=== PATIENT | female | born 1995 | race American Indian/Alaskan Native ===

== ENCOUNTER 2017-08-01 13:48 | Inpatient (IN) | payer MEDICAID ==
[2017-08-01] MEDS ORDERED: Oxytocin/Normal Saline 30 UNIT/500 ML BAG IV SCH (14:00)
[2017-08-01] MEDS ORDERED: Lactated Ringers 1,000 ML IV SCH (14:00)
[2017-08-01] MEDS ORDERED: Acetaminophen 325 MG Tab PO PRN (17:14)
[2017-08-01] MEDS ORDERED: Simethicone 80 MG Tab.Chew PO PRN (17:14)
[2017-08-01] MEDS ORDERED: Misoprostol 400 MCG (4 X 100 MCG TAB) RECTAL PRN (17:14)
[2017-08-01] MEDS ORDERED: Tranexamic Acid 1,000 MG in Sodium Chloride 0.9% 100 ML IV PRN (17:14)
[2017-08-01] MEDS ORDERED: Carboprost Tromethamine 250 MCG/1 ML Amp IM PRN (17:14)
[2017-08-01] MEDS ORDERED: Benzocaine/Menthol 20%-0.5% Spray 56 GM Canister TOP PRN (17:14)
[2017-08-01] MEDS ORDERED: Oxytocin 10 Units/1 ML SDV IM PRN (17:14)
[2017-08-01] MEDS ORDERED: Sodium Chloride 0.9% 10 ML Syringe FLUSH PRN (17:14)
[2017-08-01] MEDS ORDERED: Zolpidem 5 MG Tab PO PRN (17:14)
[2017-08-01] MEDS: Ibuprofen 800 MG Tab PO PRN (19:55)
--- NOTE | 2017-08-01 21:07 | HP ---
HISTORY OF PRESENT ILLNESS: This patient is a 22-year-old, 3, para 2 patient with no care at this facility recently. She did have an appointment with Dr. Mackenzie tomorrow in the clinic apparently. She has seen Eva Jones approximately 2 times at [place] earlier with this . OB ultrasound has suggested an ZBIGNIEW of 08/09 the patient states, and she would be at 38 weeks and 5 days' gestation today. She herself is not aware of any significant complications during this . She has been experiencing good movement lately. She states that she began having contractions about 8:30 this morning on Wednesday08/01/2017 at home. The contractions did get stronger, and she did come in to Labor and Delivery with just a rim of cervix or possibly completely dilated according to the nurses. The patient was taken to the treatment room where the only bed was available. heart tones were category 1 on admission. She denies leaking from the bag of ernandez or denies any heavy vaginal bleeding or gush of fluid previously. She does state that she did use marijuana as well as occasional Percocet earlier on in the . She does have unknown GBS status. Further review of her records that we do have on her reveal that Dr. Mackenzie was able to order an OB ultrasound last week and that was congruent with this history that I am giving now. Apparently, the patient did not keep her appointment with Dr. Mackenzie on 07/30, but was rescheduled to see Dr. Mackenzie tomorrow morning on Wednesday in the office. The patient is not immune to rubella. She has had very late care as mentioned above. Tdap vaccination was never given. PAST MEDICAL HISTORY: She denies any knowledge of heart, lung, liver, or kidney disease. ALLERGIES: None known PAST SURGICAL HISTORY: None. MEDICATIONS: At present, iron supplements orally. FAMILY HISTORY: One grandparent has had diabetes before and another grandparent had lung cancer. SOCIAL HISTORY: She does live in [place] with her parents. She did smoke cigarettes previously, but states that she did stop 3 months ago. She denies any alcohol usage during the . She has worked at [employer]. PHYSICAL EXAMINATION: Vital Signs: Please see the EHR as it pertains to her admission vital signs. HEENT: The sclerae are nonicteric. Lungs: Clear to A. Heart: Regular rhythm without murmur. Abdomen: Gravid with heart tones present and category 1. When I have examined the patient, she was completely dilated with the bag of ernandez intact. The head was at +1 to +2 station, and amniotomy is done giving clear fluid. Vertex is the presenting part of course. Extremities: Negative. IMPRESSION: We do anticipate recent or spontaneous vaginal delivery in the very near future. We have discussed her with family doctor, Dr. Padilla, who will be taking care of the baby. She does have unknown GBS status. Please see the EHR as it pertains to the remainder of all of her other laboratory data. [facility] /[id number]
--- NOTE | 2017-08-02 02:28 | DEL ---
DATE: 08/01/2017 HISTORY: The patient does come to Labor and Delivery with either a rim to possibly completely dilated with bulging bag of ernandez. Please see our dictated H and P. She has proceeded on very rapidly to have a normal spontaneous vaginal delivery. The baby was delivered from the occiput anterior position. scores were 8 and 9, and the baby's weight is pending. A sample of cord blood was obtained. The vaginal delivery occurred at 1416 hours on 08/01/2017. The placenta was delivered spontaneous and intact. A sample of cord blood was obtained as mentioned above. No episiotomy was done and no lacerations were sustained. Estimated blood loss was approximately 250 mL. The patient has tolerated the procedure well and remains very stable in the area, which is actually the treatment room today at the moment. Baby also remains very stable. [facility] /[id number]
[2017-08-02] MEDS: Prenatal Multivitamin with Calcium/Folic Acid/Iron Tab PO SCH (09:29)
[2017-08-02] MEDS: Docusate Sodium 100 MG Cap PO PRN ×2 (09:29→22:16)
[2017-08-02] MEDS: Ibuprofen 800 MG Tab PO PRN ×2 (09:31→17:56)
--- NOTE | 2017-08-02 17:53 | PN ---
DATE: 08/02/2017 SUBJECTIVE: The patient denies any problems. She is feeling well today. Her lochia flow is normal. OBJECTIVE: Her extremities are negative including negative Homans sign. Her vital signs are within normal limits. ASSESSMENT: Stable course. The patient is bottle feeding. She does ask about bilateral tubal ligation in the future. She has not yet signed any of the necessary paperwork here or at [place]. We will permit discharge tomorrow and further advise her regarding getting the paperwork done for her BTL and then we will also help set up a consultation with Dr. Cates in the future either here in [place] or in [place], as he will also have to do the procedure at [facility]. Perhaps we would give the patient a Depo-Provera injection IM in about 2 weeks to help facilitate her so that she does not get and give us time for her to proceed with bilateral tubal ligation. She will do gradual progressive ambulation while in the hospital as well as when she gets home. We did discuss the importance of healthy well-balanced nutritional measures and adequate hydration, etc. All of her questions have been answered as best as possible. We will see her tomorrow on Wednesday and discharge her tomorrow on 08/03/2017. [facility] /[id number]
[2017-08-03] MEDS: Ibuprofen 800 MG Tab PO PRN (02:23)
[2017-08-03] MEDS: Prenatal Multivitamin with Calcium/Folic Acid/Iron Tab PO SCH (08:50)
[2017-08-03] MEDS: Docusate Sodium 100 MG Cap PO PRN (08:50)
[2017-08-03] MEDS ORDERED: Measles, Mumps & Rubella Vaccine 0.5 ML SDV SUBCUT ONE (08:51)
[2017-08-03] MEDS ORDERED: Diphtheria,Pertussis(Acell),Tetanus Vaccine 0.5 ML SDV IM ONE (08:51)
[2017-08-03 09:32] VITALS: BP 107/57
--- NOTE | 2017-08-04 01:13 | DISCH ---
HISTORY OF PRESENT ILLNESS: This patient is a 22-year-old multigravida with sparse care. I believe, she has seen Eva Jones, approximately 2 times in the clinic at [place]. The patient did have an appointment to see Dr. Mackenzie at our facility in [place] this past 07/30/2017, but the patient did not keep that appointment. She has therefore not seen any of our doctors recently here. A review of the records that I do have on her, show that she has unknown GBS status. On admission, her blood type is O positive and antibody screen was negative. She was thought to possibly be at 38 weeks 5 days gestation. She was immune to rubella. RPR was nonreactive. HIV testing was negative. Her GC and chlamydia testing were negative earlier. She is negative for hepatitis B surface antigen. As mentioned above, antibody screen was negative. One-hour GTT was 130 or within normal limits. The patient felt that her contractions started to get quite strong on Wednesday morning, August 01. They got progressively stronger and she made a quick trip to Labor and Delivery area. When she did arrive at our Labor and delivery area, she only had a rim of cervix with a bulging bag of ernandez. The patient was taken to the treatment room and triage room because no labor beds were available. I was able to garg over and see the patient before delivery. She denied any knowledge of previous heart, lung, liver, or kidney disease. Please see my dictated H and P that is already in the EHR. Also, please see my dictated delivery note. The patient did proceed on to have a spontaneous vaginal delivery, and at the moment, I do not have the baby's weight in front of me. Her baby did have good scores of 8 and 9. Please see dictated delivery note as mentioned above. The patient has done well in the . Her extremities are negative and her lochia flow is within normal limits. The patient is seen again today on discharge rounds on August 03. Her extremities are still negative and lochia flow is normal. Fundus is firm. Her discharge hemoglobin is 10.7. Her extremities are negative as mentioned above. The patient did mention that she is quite sure that she wants a tubal ligation. I did thoroughly explain to her the importance of starting the paperwork at this time, and I did urge her to go to her clinic at [place] and start the paperwork permit process and if she chooses to change her mind in the future that is no problem whatsoever. Also, I did urge her to see me in the clinic in approximately 2 weeks and we will administer Depo-Provera if she wishes for interval contraception. The patient is bottle feeding. One of our family doctors is following the baby. Her discharge hemoglobin is 10.7, and her condition on discharge is good. As mentioned above, baby will be seen in approximately 1 week in our clinic and she will see me in approximately 2 weeks for followup appointment. OTHER INSTRUCTIONS: She will call us at once if any questions or problems with excess pain, excess bleeding, lower extremity or breast problems etc. She also would call us if any fever. All of her questions have been answered as best as possible. DISCHARGE MEDICATIONS: She will take either Tylenol or Motrin p.r.n. and Colace p.r.n. she was also urged to continue her vitamin and have healthy well- balanced nutritional measures and stay adequately hydrated. FINAL DIAGNOSES: at approximately 38 weeks 5 days gestation with spontaneous vaginal delivery and no episiotomy and no lacerations. [facility] /[id number]
== END 2017-08-03 11:20 | disposition home or self-care (01) | DRG 775 ==
LOC: DL.OBCHECK 13:48 → DL.MS 14:16 → DL.OB 14:25 → OBSVTOIN 14:25 → UNDOADMOB 14:25 → DL.MS 14:25 → INTOOBSV 14:25
PROVIDERS: ADMIT Obstetrics & Gynecology; ATTEND Obstetrics & Gynecology
PROC: 10E0XZZ Delivery of Products of Conception, External Approach (ICD-10-PCS; principal; 2017-08-01)
PROC: 6A550ZT Pheresis of Cord Blood Stem Cells, Single (ICD-10-PCS; 2017-08-01)
PROC: 3E0234Z Introduction of Serum, Toxoid and Vaccine into Muscle, Percutaneous Approach (ICD-10-PCS; 2017-08-01)
DX: O80 Encounter for full-term uncomplicated delivery (principal); Z37.0 Single live birth; Z3A.38 38 weeks gestation of pregnancy; Z23 Encounter for immunization; Z28.3 Underimmunization status
CPT/HCPCS: 36415; 59409; 85027; 90471; 90707; 90715; A9270-GY; J2590; J7120

== ENCOUNTER → 2019-06-22 02:36 | Emergency (ER) | payer MEDICAID | END | disposition left against medical advice (07) | LOC: DL.ED 02:36 | DX: Z53.21 Procedure and treatment not carried out due to patient leaving prior to being seen by health care provider (principal) ==

== ENCOUNTER 2020-01-20 16:50 | Emergency (ER) | payer MEDICAID, OTHER, SELFPAY ==
[2020-01-20 17:13] VITALS: BP 115/91; PULSE 93
[2020-01-20] MEDS ORDERED: Lidocaine 1% 30 ML SDV INJECT ONE (18:55)
--- NOTE | 2020-01-20 19:04 | EDM.PDOC ---
ED HPI GENERAL MEDICAL PROBLEM - General Chief Complaint: Laceration Stated Complaint: LACERATION ON RIGHT HAND, BLEEDING Time Seen by Provider: 01/20/20 18:59 Source of Information: Reports: Patient History Limitations: Reports: No Limitations - History of Present Illness INITIAL COMMENTS - FREE TEXT/NARRATIVE: cut while doing dishes Right Finger-Index Pain Score (Numeric/FACES): 9 - Related Data Allergies Allergy/AdvReac Type Severity Reaction Status Date / Time No Known Allergies Allergy Verified 01/20/20 17:13 Home Meds: Home Meds Ferrous Sulfate 325 mg PO BIDMEALS 12/09/18 [History] Past Medical History - Past Health History Medical/Surgical History: Denies Medical/Surgical History Other HEENT History: bit by dog, with subsequent laser surgery to one eye at age 2 Cardiovascular History: Reports: None Respiratory History: Reports: None Gastrointestinal History: Reports: None Other Gastrointestinal History: heartburn Genitourinary History: Reports: UTI, Recurrent Other Genitourinary History: frequent UTIs when 12-13yrs HEARING [employer]IST History: Reports: None, Musculoskeletal History: Reports: None, Other (See Below) Other Musculoskeletal History: Rt foot fracture Neurological History: Reports: None Psychiatric History: Reports: None Other Psychiatric History: occ Endocrine/Metabolic History: Reports: None Other Endocrine/Metabolic History: IGT per record. Hematologic History: Reports: None Immunologic History: Reports: None Oncologic (Cancer) History: Reports: None Dermatologic History: Reports: None - Infectious Disease History Infectious Disease History: Reports: Chicken Pox Other Infectious Disease History: +GC, +Chlamydia - Past Surgical History Head Surgeries/Procedures: Reports: None HEENT Surgical History: Reports: Laser Surgery Cardiovascular Surgical History: Reports: None Respiratory Surgical History: Reports: None GI Surgical History: Reports: None Female Surgical History: Reports: None Endocrine Surgical History: Reports: None Neurological Surgical History: Reports: None Oncologic Surgical History: Reports: None Dermatological Surgical History: Reports: None Social & Family History - Family History Family Medical History: Noncontributory HEENT: Reports: None Cardiac: Reports: None Respiratory: Reports: None GI: Reports: None : Reports: None OBGYN: Reports: Other (See Below) Musculoskeletal: Reports: None Neurological: Reports: None Psychiatric: Reports: None Endocrine/Metabolic: Reports: Diabetes, Gestational, Diabetes, Type I, Diabetes, type II Hematologic: Reports: None Immunologic: Reports: None Dermatologic: Reports: None Oncologic: Reports: Breast, Lung - Tobacco Use Smoking Status *Q: Current Every Day Smoker Years of Tobacco use: 4 Packs/Tins Daily: 0.5 Second Hand Smoke Exposure: No - Caffeine Use Caffeine Use: Reports: Coffee, Soda - Recreational Drug Use Recreational Drug Use: No - Sexual History Sexual History: Reports: Sexually Active - Living Situation & Occupation Living situation: Reports: Single Occupation: Unemployed ED ROS GENERAL - Review of Systems Review Of Systems: Comprehensive ROS is negative, except as noted in HPI. ED EXAM, SKIN/RASH Exam: See Below Exam Limited By: No Limitations General Appearance: Alert, WD/WN, Mild Distress, Other (crying) Ears: Hearing Grossly Normal Throat/Mouth: Normal Voice, No Airway Compromise Head: Atraumatic Neck: Non-Tender, Full Range of Motion Respiratory/Chest: No Respiratory Distress Cardiovascular: Regular Rate, Rhythm GI/Abdominal: Soft, Non-Tender (Female) Exam: Deferred Rectal (Female) Exam: Deferred Extremities: Other (right 2nd MPJ 1" lac, NV wnl, c/o too pain to move finger) Neurological: Alert, Oriented, Normal Cognition, Normal Gait, No Motor/Sensory Deficits Psychiatric: Tearful Skin: Warm, Dry, Normal Color Location, Skin: Upper Extremity, Right Lymphatic: No Adenopathy ED SKIN PROCEDURES - Laceration/Wound Repair Right Digit - 2nd (Index) Appearance: Subcutaneous, Irregular, Clean Distal NVT: Neuro & Vascular Intact, Other (c/o too much pain to move finger) Local Anesthesia - Lidocaine (Xylocaine): 1% Plain Local Anesthetic Volume: 5cc Skin Prep: Chlorhexidine (Hibiciens) Saline Irrigation (cc's): 20 Exploration/Debridement/Repair: Wound Explored, In a Bloodless Field, No Foreign Material Found Closed with: Sutures Lac/Wound length In cm: 3 (right 2nd MPJ) Suture Size: 3-0 Suture Type: Nylon, Interrupted Sterile Dressing Applied: Provider Tetanus Status Addressed: Yes Complications: No Right Digit - 1st (Thumb) Appearance: Superficial, Linear, Clean Distal NVT: Neuro & Vascular Intact, No Tendon Injury Skin Prep: Chlorhexidine (Hibiciens) Saline Irrigation (cc's): 20 Exploration/Debridement/Repair: Wound Explored, In a Bloodless Field, No Foreign Material Found Closed with: Dermabond Lac/Wound length In cm: 0.5 (RIGHT THUMB) Sterile Dressing Applied: Provider Tetanus Status Addressed: Yes Complications: No Course - Vital Signs Last Recorded V/S: Last Vital Signs Temp 36.6 C 01/20/20 17:04 Pulse 93 01/20/20 17:04 Resp 16 01/20/20 17:04 BP 115/91 H 01/20/20 17:04 Pulse Ox 100 01/20/20 17:04 - Orders/Labs/Meds Meds: Medications Discontinued Medications Generic Name Dose Route Start Last Admin Trade Name Michelle PRN Reason Stop Dose Admin Lidocaine HCl 30 ml 01/20/20 18:55 01/20/20 18:58 Xylocaine-Mpf 1% INJECT 01/20/20 18:56 30 ml ONETIME ONE Administration Departure - Departure Time of Disposition: 19:23 Disposition: Home, Self-Care 01 Condition: Good Clinical Impression: Finger laceration Qualifiers: Encounter type: initial encounter Finger: index finger Damage to nail status: without damage Foreign body presence: without foreign body Laterality: right Qualified Code(s): S61.210A - Laceration without foreign body of right index finger without damage to nail, initial encounter - Discharge Information Instructions: Sutured Wound Care, [id number] Forms: ED Department Discharge Additional Instructions: 1) keep wound clean dry covered 2) wound check if looks infected 3) suture removal 10 days 4) see clinic Wednesday for ORTHOPEDIC REFERRAL IF STILL UNABLE TO MOVE FINGER Sepsis Event Note (ED) - Evaluation Sepsis Screening Result: No Definite Risk - Focused Exam Vital Signs: Vital Signs Temp Pulse Resp BP Pulse Ox 01/20/20 17:04 36.6 C 93 16 115/91 H 100
== END 2020-01-20 19:33 | disposition home or self-care (01) ==
LOC: DL.ED 16:50
DX: S61.210A Laceration without foreign body of right index finger without damage to nail, initial encounter (principal); S61.011A Laceration without foreign body of right thumb without damage to nail, initial encounter; F17.210 Nicotine dependence, cigarettes, uncomplicated; W26.8XXA Contact with other sharp object(s), not elsewhere classified, initial encounter; Y93.G1 Activity, food preparation and clean up
CPT/HCPCS: 12002; 99282; J2001

== ENCOUNTER 2020-09-02 08:55 | Inpatient (IN) | payer MEDICAID ==
[2020-09-02] MEDS ORDERED: Lactated Ringers 1,000 ML IV ONE (09:28)
[2020-09-02] MEDS ORDERED: Oxytocin 10 Units/1 ML SDV IM PRN (09:28)
[2020-09-02] MEDS ORDERED: Carboprost Tromethamine 250 MCG/1 ML Amp IM PRN ×2 (09:28)
[2020-09-02] MEDS ORDERED: Tranexamic Acid 1,000 MG in Sodium Chloride 0.9% 100 ML IV PRN ×4 (09:28)
[2020-09-02] MEDS ORDERED: Methylergonovine 0.2 MG/1 ML Amp IM PRN (09:28)
[2020-09-02] MEDS ORDERED: Misoprostol 400 MCG (4 X 100 MCG TAB) RECTAL PRN ×2 (09:28)
[2020-09-02] MEDS ORDERED: Acetaminophen 325 MG Tab PO PRN (09:28)
[2020-09-02] MEDS ORDERED: Lidocaine 1% 30 ML SDV INJECT PRN (09:28)
[2020-09-02] MEDS ORDERED: Ondansetron 4 MG/2 ML SDV IVPUSH PRN (09:28)
[2020-09-02] MEDS ORDERED: Sodium Chloride 0.9% 10 ML Syringe FLUSH PRN (09:28)
[2020-09-02] MEDS ORDERED: Benzocaine/Menthol 20%-0.5% Spray 56 GM Canister TOP PRN (09:28)
[2020-09-02] MEDS ORDERED: Oxytocin/Normal Saline 30 UNIT/500 ML BAG IV SCH (09:30)
[2020-09-02] MEDS ORDERED: Lactated Ringers 1,000 ML IV SCH (09:30)
[2020-09-02] MEDS ORDERED: Labetalol 20 MG/4 ML Syringe IVPUSH PRN ×2 (09:36→09:44)
[2020-09-02] MEDS ORDERED: Simethicone 80 MG Tab.Chew PO PRN (10:00)
[2020-09-02] MEDS: Ibuprofen 800 MG Tab PO PRN ×2 (10:05→21:38)
[2020-09-02] MEDS ORDERED: Magnesium Sulfate/Water 4 GM/100 ML BAG ONE (10:36)
[2020-09-02] MEDS ORDERED: Magnesium Sulfate/Water 4 GM/100 ML BAG IV ONE (10:37)
[2020-09-02] MEDS ORDERED: hydrALAZINE 20 MG/ML SDV IVPUSH PRN (10:42)
[2020-09-02] MEDS ORDERED: MAGNESIUM SULFATE IV SCH (10:45)
[2020-09-02] MEDS ORDERED: D5W IV SCH (10:45)
[2020-09-02] MEDS: Magnesium Sulfate/Water 20 GM/500 ML BAG IV SCH ×2 (11:28→21:37)
--- NOTE | 2020-09-02 13:48 | US ---
EXAMINATION: OB Ltd 1 or More Fetus SEX: Female AGE: 25 years CLINICAL HISTORY: 25-year-old high risk (no care) female "in labor" (baby delivered during exam). Interpretation: Enlarged uterus with a single intrauterine gestation, longitudinal lie and cephalic presentation. Fundal placenta.
--- NOTE | 2020-09-02 18:24 | HP ---
ADMISSION DATE: 09/02/2020 ADMITTING DIAGNOSES: 1. Intrauterine , suspect near term. 2. No care. 3. Labor with rapid delivery of viable female . 4. Group B streptococcus unknown. 5. Meconium-stained fluid. 6. Preeclampsia with severe features. 7. G5, now P5-0-0-5. 8. Drug toxicology positive for THC and methamphetamines. 9. Blood type O positive with negative antibody screen. 10.Anemia of , hemoglobin upon admission 11.0. HISTORY OF PRESENT ILLNESS: Kimmy Ross is a 25-year-old, G5, now P5-0-0-5 at unknown gestation, who presented to [facility] in active labor. She felt the need to push upon arrival and reports no care. She believes her LMP was in 09/2019 or 10/2019. She never took a test. She denied any symptoms of . She reports that she knew she was , but she did not have time to go in for visits. She also reports that she lacks transportation. After presenting to the hospital, within 12 minutes, she had delivered a viable female . Third stage of labor occurred without complication, and placenta was delivered, but had diffuse calcifications present. Bleeding was minimal. No repairs were made to the perineum or vaginal perla. prior to delivery statu ultrasound revealed vertex presentation with fundal placenta and unable to do EFW/dates as rapid delivery. OBSTETRIC HISTORY: G5, P5-0-0-5 1. 02/16/2015: Female, vaginal, 2845 g. 2. 03/30/2016: Female, vaginal, 3260 g. 3. 08/01/2017: Male, vaginal, 3630 g. 4. 12/09/2018: Male, vaginal, 3420 g. 5. Current , delivered today on 09/02/2020, female, vaginal, 2445 g. ALL VAGINAL DELIVERIES GYNECOLOGICAL HISTORY: Denies history of genital herpes. LABS: None. PAST MEDICAL HISTORY: Positive for gestational hypertension. Denies history of seizures. PAST SURGICAL HISTORY: Had eye laser surgery at [age] years of age. ALLERGIES: No known allergies. SOCIAL HISTORY: Lives in [place]. She reports lack of transportation. She used tobacco approximately three cigarettes per day throughout this . She denies any alcohol use throughout this . She promotes marijuana use and Percocet use during this . She denies any history of IV drug use. She denies history of methamphetamine use. She last used Percocet from a non-pharmacy origin which she reports was laced with something. She took it for her back pain but felt sick, so she discontinued use. She believes it was laced with methamphetamine. FAMILY HISTORY: Dad has diabetes and hypertension. Denies any congenital defects, bleeding, or clotting disorders in her family history. REVIEW OF SYSTEMS: Positive for vision changes. Denies any headaches, nausea, vomiting, fevers, chills, chest pain, shortness of breath, numbness, paresthesias, or weakness. MEDICATIONS DURING : Reports taking vitamins throughout the entire . Also, reports Percocet use which she believes was laced with methamphetamines. Denies any other medications during this . PHYSICAL EXAMINATION: Admission Vital Signs: 98.0 F, BP 148/89, P 79, breathing on room air. General appearance: In acute distress Lungs: Bilateral wheezes present. Symmetric air entry. Abdomen: Post gravid uterus. Abdomen appropriately tender. Fundus firm, 1 fingerbreadth below umbilicus at midline. Extremities: No concerning edema. Skin: Normal coloration and turgor. Neurologic: Cranial nerves 2 through 12 normal. Bilateral ankle clonus present. Bilateral visual sena intact. Night Auditor strength equal bilaterally. FHT: Before delivery, approximately 10 minutes of heart tones were recorded. Strip was category 2 with baseline of 140 and moderate variability. Variable decelerations present, accelerations present. Tocometer: Oniel continuous/every 1 minute. Pelvic: Cervix dilated to complete. Upon cervical exam, bag of water broken with mec-stained fluid present. station +2. LABORATORY DATA: Hematology: WBC 11.4, RBC 4.14, HGB 11.0, HCT 34.7, platelet count 182. Chemistry: BUN 12, creatinine 1.02, uric acid 5.3, magnesium 1.6, AST 22, ALT 18, LDH 244. Urine: Yellow; specific gravity 1.025; urine protein high at 100; negative for glucose, ketones, nitrites, bilirubin, leukocyte esterase. Protein creatinine ratio at 1037.5. Urine toxicology: Positive for methamphetamines and marijuana. Negative for opiates, oxycodone, methadone, barbiturates, TCAs, phencyclidine, MDMA, benzodiazepines, cocaine. Serology: HIV-1 antibody nonreactive, HIV-2 antibody nonreactive, HIV p24 antigen nonreactive, SARS-CoV-2 RNA negative. Blood type O positive with negative antibody screen. IMAGING: Obstetric ultrasound confirmed vertex presentation with placenta at fundus. HOSPITAL COURSE SINCE ADMISSION: The patient's blood pressures became elevated with systolic blood pressures greater than 160. She was given 20 mg IV push of labetalol. After 15 minutes, her blood pressures had not improved, so 40 mg IV push labetalol was given. After a subsequent 15 minutes, her blood pressure remained elevated with a systolic blood pressures above 160, and her pulse rate was low at 59. It was determined at this time to give 10 mg IV push of hydralazine. We also started magnesium per protocol which included a 4 g push followed by a 2 g/hour continuous dosage for 24 hours . The patient has remained nonambulatory. A catheter was placed. There was not time to begin penicillin prophylaxis for unknown GBS status, but culture was sent for verification. ASSESSMENT AND PLAN: Kimmy Ross is a 25-year-old female, G5, now P5-0-0-5, at unknown gestation who is admitted for delivery and now care and monitoring/management of preeclampsia with severe features. We will order magnesium blood levels every 6 hours. We will continue to monitor serially and closely including reflex checks every hour, blood pressure checks every 15 minutes, and additional signs and symptoms of preeclampsia. If blood pressures are above goal (SBP greater than 160 or DBP greater than 110), may consider giving 40 mg IV push of labetalol if heart rate is within normal limits or may use 10 mg IV push of hydralazine. We will continue the magnesium drip for up to 24 hours . We will continue to monitor for signs and symptoms of drug withdrawal. We will order CBC for the a.m. tomorrow. May encourage a normal diet. We will follow up on the following labs: RPR (syphilis serology), hepatitis B surface antigen screen, hepatitis C virus antibodies, chlamydia and gonorrhea, culture of GBS, rubella antibody, tramadol screen, wet prep, and magnesium q.6 h. Continue with seizure precautions. The patient verbalizes understanding and is in agreement with plan. We will continue to follow closely and monitor clinically as appropriate. ADRIAN HillII Seen with medical student. Patient was personally seen and examined with the medical student practitioner student, Fozia Palomo. I reviewed the noted scribed on my behalf and necessary changes have been made to reflect my opinion on the history, exam, assessment, and plan [facility] /[id number]
[2020-09-02] MEDS ORDERED: Zolpidem 5 MG Tab PO PRN (21:00)
[2020-09-03] MEDS: Prenatal Multivitamin with Calcium/Folic Acid/Iron Tab PO SCH (08:41)
[2020-09-03] MEDS: Docusate Sodium 100 MG Cap PO PRN ×2 (08:41→20:24)
[2020-09-03] MEDS: Ibuprofen 800 MG Tab PO PRN ×2 (08:41→20:24)
[2020-09-03 11:47] LABS: C.TRACHOMATIS BY TMA Negative (Negative); N.GONORRHOEAE BY TMA Negative (Negative)
--- NOTE | 2020-09-03 12:21 | DEL ---
DATE: 09/02/2020 PREOPERATIVE DIAGNOSES: 1. Intrauterine with no care, suspect near-term. 2. No care. 3. Labor. 4. Rapid delivery. 5. Group B Streptococcus unknown. 6. -0-0-4. POSTOPERATIVE DIAGNOSES: 1. Intrauterine with no care, suspect near-term, delivered. 2. No care. 3. Labor. 4. Rapid delivery. 5. Group B Streptococcus unknown. 6. Now -0-0-5. 7. Meconium-stained fluid. PROCEDURE PERFORMED: Spontaneous vaginal delivery. ANESTHESIA/ANALGESIA: None. ESTIMATED BLOOD LOSS: 200 mL. FINDINGS: Female. score and weight pending. SUMMARY OF EVENTS: The patient is a 25-year-old, -0-0-4 by her history, who presented in active labor with no care. Noted contractions started the night before admission, increasing frequency and intensity to the point that she almost felt like she had to push and presented to the hospital. She described some mucousy red discharge over the last day. No leaking of fluid. She notes the urge to push upon admission. Stat ultrasound as well as no care labs were called for, an IV was started. Initial monitoring did reveal heart tones in the 130s. Initial blood pressure was 140s over 80s. Stat ultrasound did reveal vertex presentation with fundal placenta. Subsequently vaginal exam thereafter revealed her to be complete. The patient described the urge to push and then subsequently pushed with the next contraction. vertex was delivered with bag of water ruptured with presentation of the head with meconium-stained fluid. Rest of the was delivered without difficulty. Mouth and nares were suctioned. Cord was doubly clamped and cut. was brought over to team for resuscitation. Then, approximately 10 mL of cord blood was obtained for labs. Placenta was then delivered with gentle cord traction and fundal massage within 5 to 10 minutes. Perineum, vagina, and perirectal areas were then examined without any tears or lacerations other than small bilateral periurethral abrasions. Prior to delivery of placenta, cath urinalysis was done for labs for urine drug screen as well as for PIH labs due to elevated blood pressure. Mother and are currently stable at the time of dictation. [facility] /[id number]
--- NOTE | 2020-09-03 12:32 | PN ---
DATE: 09/03/2020 SUBJECTIVE: The patient is 1 day s/p a normal spontaneous vaginal delivery at unknown gestation. She reports feeling tired and fatigued. She reports that her vision changes have completely resolved. She did not sleep well overnight. She is demanding her medications be stopped and wants breakfast this morning. I assured patient that breakfast would be served this morning. She also reports having headache overnight, which has resolved. She denies any chest pain, shortness of breath, numbness, weakness, paresthesias, fevers, chills, nausea, or vomiting. She still has a Velazquez catheter and is nonambulatory. OBJECTIVE: Vital Signs: T afebrile, P 66, BP 115/68, and respirating on room air. General Appearance: In no acute distress. Heart: Regular rate and rhythm. No murmur heard. Lungs: Bilateral wheezes present. Symmetric air entry. Abdomen: Post gravid uterus. Abdomen appropriately tender. Fundus firm at level of umbilicus, left to the midline. Extremities: No concerning edema. Skin: Normal coloration and turgor. Neurologic: Cranial nerves 2 through 12 normal. No ankle clonus bilaterally. Bilateral visual sena intact. Boatbuilder Apprentice Wood strength equal bilaterally. LABORATORY DATA: WBC 11.0, RBC 4.05, HGB 10.7, HCT 33.9, and platelet count 177. Magnesium 6.0. Rubella immune status, immune. Rubella IgG antibody positive. ASSESSMENT: 1. 1 day status post normal spontaneous vaginal delivery suspect near term. 2. No care. 3. Labor with rapid delivery of viable female . 4. Group B Streptococcus status unknown. 5. Meconium-stained fluid. 6. Preeclampsia with severe features. 7. G5, now P5-0-0-5. 8. Drug toxicology positive for THC and methamphetamines. 9. Blood type O-positive with negative antibody screen. 10.Anemia of . Hemoglobin upon admission 11.0, hemoglobin today 10.7. 11.Rubella immune. PLAN: We may discontinue magnesium after 24 hours . In the meantime, we will continue to order magnesium blood levels every 6 hours. We will continue to monitor serially and closely including reflex checks every hour, blood pressure checks every hour, and observe for additional signs and symptoms of preeclampsia. Goal to maintain blood pressures, SBP less than 160 or DBP less than 110. If not meeting blood pressure goals, may consider 20 mg IV push of labetalol. We will continue to monitor for signs and symptoms of drug withdrawal. May encourage a normal diet. We will continue to follow up on the following labs: RPR/syphilis serology, hepatitis B surface antigen screen, hepatitis C virus antibodies, chlamydia and gonorrhea, culture of GBS, tramadol screen, wet prep, and magnesium levels every 6 hours. Continue seizure precautions. The patient verbalizes understanding and is in agreement with plan. We will continue to follow closely and monitor clinically as appropriate. director of women's services was contacted and they will undergo their assessment. We will discharge considering their recommendations. SAVANA Hill Seen with medical student. Patient was personally seen and examined with the medical student practitioner student, Fozia Palomo. I reviewed the noted scribed on my behalf and necessary changes have been made to reflect my opinion on the history, exam, assessment, and plan-[facility] [place] /[id number] RADHA
[2020-09-03] MEDS: Acetaminophen 325 MG Tab PO PRN (20:25)
[2020-09-04] MEDS: Docusate Sodium 100 MG Cap PO PRN (08:42)
[2020-09-04] MEDS: Prenatal Multivitamin with Calcium/Folic Acid/Iron Tab PO SCH (08:42)
[2020-09-04] MEDS: Ibuprofen 800 MG Tab PO PRN (08:42)
[2020-09-04] MEDS: Acetaminophen 325 MG Tab PO PRN (12:07)
[2020-09-04 12:12] VITALS: BP 131/68; PULSE 74
--- NOTE | 2020-09-04 12:23 | PN ---
DATE: 09/04/2020 SUBJECTIVE: The patient is 2 days S/P a normal spontaneous vaginal delivery at unknown gestation. She still reports feeling tired and fatigued. She reports that she has mainly slept during her hospital stay. She denies any vision changes. She denies any headaches, chest pain, shortness of breath, fevers, chills, nausea, or vomiting. Velazquez catheter has been removed. She has no concerns. OBJECTIVE: Vital signs: T 98.5 F, P 75, BP 142/69, RR 19. General appearance: Sleeping, in no acute distress. Heart: Regular rate and rhythm. No murmur heard. Lungs: Bilateral wheezes present. Symmetric air entry. Abdomen: Post gravid uterus. Fundus firm, 2 fingerbreadths below the level of umbilicus, at midline. Extremities: No concerning edema. Skin: Normal coloration and turgor. Neurologic: Cranial nerves grossly intact. Nuclear Supervising Operator strength equal bilaterally. LABORATORY DATA: Preliminary GBS results negative, chlamydia negative, gonorrhea negative, hepatitis B surface antigen negative. ASSESSMENT: 1. 2 days status post normal spontaneous vaginal delivery, suspect near term. 2. No care. 3. Labor throughout the delivery of viable female . 4. Group B Strep status preliminary negative. 5. Meconium-stained fluid. 6. Preeclampsia with severe features, treated with magnesium 24 hours . 7. 5, now para 5-0-0-5. 8. Drug toxicology positive for THC and methamphetamines. 9. Blood type O positive with negative antibody screen. 10.Anemia at . Hemoglobin upon admission 11.0, last hemoglobin was 10.7. 11.Rubella immune. PLAN: We will continue to monitor serum closely to observe for any additional signs and symptoms of preeclampsia. Goal to maintain blood pressures SBP less than 160 or DBP less than 110. We will continue to monitor for signs and symptoms of drug withdrawal. May encourage a normal diet. Encourage increasing activity as tolerated. We will continue to follow up on the following labs: RPR/syphilis serology, hepatitis C virus antibodies, tramadol screen, wet prep. Learning Analyst was contacted and they will undergo their assessment. We will consider their recommendations when making discharge planning. The patient verbalizes understanding and is in agreement with plan. ADRIAN HillII Seen with medical student. Patient was personally seen and examined with the medical student practitioner student, Fozia Palomo. I reviewed the noted scribed on my behalf and necessary changes have been made to reflect my opinion on the history, exam, assessment, and plan-DCW. as of 1706 patient discharged after social and human services assistant made plan for baby-see discharge summary as well. [facility] /[id number] MTDD
--- NOTE | 2020-09-05 06:50 | DISCH ---
ADMITTING DIAGNOSES: 1. Intrauterine suspect near term. 2. No care. 3. Labor. 4. Rapid delivery. 5. GBS unknown. 6. Meconium-stained fluid. 7. G4, P4-0-0-4. 8. Positive THC and methamphetamine on urine drug screen. 9. Preeclampsia severe features. DISCHARGE DIAGNOSES: 1. Intrauterine suspect near term - delivered suspect nearly 39 to 40 weeks based on Payan scoring. 2. No care. 3. Labor. 4. Rapid delivery. 5. GBS unknown. 6. Meconium-stained fluid. 7. -0-0-4. 8. Positive THC and methamphetamine on urine drug screen. 9. Preeclampsia severe features - magnesium sulfate given for 24 hours . PROCEDURE PERFORMED: Spontaneous vaginal delivery on 09/02/2020. Procedure performed by Reginald Elaine MD HISTORY OF PRESENT ILLNESS: Please see H and P. SUMMARY OF HOSPITAL COURSE: The patient admitted on the above date with above diagnosis, who presented in active labor with advanced cervical dilation with no care. Stat ultrasound was done, did reveal vertex presentation. Found to be complete thereafter and next contraction pushed and had a vaginal delivery of baby girl 7 and 9, weighing 5 pounds 6.2 ounce (2445 g) with meconium- stained fluid. Workup thereafter did reveal positive methamphetamine and THC on urine drug screen as well as preeclampsia with severe features based on blood pressures shortly after delivery. She was subsequently given labetalol as well as put on magnesium sulfate for 24 hours. No evidence of HELLP on labs was noted. Mag level followed serially and the patient was followed closely. Please see progress notes for further details done in conjunction with NAUN Hill seen and agreed. DISCHARGE EVALUATION: Please see progress note from today which was done in the morning, then subsequent further evaluation/another evaluation done by Dr. Elaine did reveal lungs clear to auscultation. Heart S1 and S2. Regular rhythm. Firm uterus around the umbilicus. The patient denies any chest pain, shortness of breath, lightheadedness, headaches, visual changes, or upper abdominal pain. Last set of vitals; temp 99.3, heart rate 74, and blood pressure 131/68. Prior to this, she has had some elevated 142/69 and 153/101, but now is resting within normal limits and respiratory rate 16. Prior to these, other 2 elevated blood pressures yesterday had some normal blood pressures as well. CONDITION ON DISCHARGE COMPARED TO CONDITION ON ADMISSION: Improved. DISCHARGE INSTRUCTIONS: 1. Diet: As tolerated. 2. Activity: No lifting more than 20 pounds. No sit-ups or straining, and pelvic rest for the next 6 weeks with immediate return of fertility fully discussed with the patient. 3. Reasons to return was discussed with the patient in detail including, but not limited to temperature greater than 100.4, foul-smelling discharge, red or tender breasts, or increased vaginal bleeding, or headaches, visual changes, or upper abdominal pain. Did discuss importance of followup and ramifications of not doing so. FOLLOWUP: for baby on 09/06/2020 at 9:45 in the clinic with Dr. Elaine, did discuss with the patient. She understands and agrees. Also recommend 6- week . She is wishing for tubal and discussed importance of followup and ramifications of not doing so. She understands and agrees the above treatment plan. Please see discharge paperwork for further details as well. Of note, social services specialist was involved and did make a care plan for her baby and baby's care. Over 30 minutes was spent in evaluation and management of the patient today and discharge planning. [facility] /[id number] RADHA
--- NOTE | 2020-09-05 07:19 | PN ---
DATE: 09/04/2020 day #2. SUBJECTIVE: The patient was sleeping earlier this morning, has been sleeping well. OBJECTIVE: She did have 1 elevated blood pressure today and history of preeclampsia with severe features, now off her mag sulfate. Please see other notes in regard to evaluation today done by Fozia Palomo, MS3. ASSESSMENT: Intrauterine , suspect near term-delivered via spontaneous vaginal delivery, day #2 with no care. Labor and rapid delivery. Upon admission, GBS unknown, meconium-stained fluid. G5, now P5-0-0- 5 with positive drug screen for THC and methamphetamine and preeclampsia with severe features, now off mag after 24 hours treatment. PLAN: Due to the elevated blood pressure, we will continue to follow clinically and closely. Watch for any signs or symptoms of preeclampsia reemerging. Will be following closely. In addition, Dinkey Engine Operator has been involved in the care of her infant and they are working on a care plan at this point in time. [facility] /[id number] RADHA
== END 2020-09-04 16:50 | disposition home or self-care (01) | DRG 807 ==
LOC: DL.OBCHECK 08:55 → DL.OB 09:08
PROVIDERS: ADMIT Family Medicine; ATTEND Family Medicine
PROC: 10E0XZZ Delivery of Products of Conception, External Approach (ICD-10-PCS; principal; 2020-09-02)
DX: O14.14 Severe pre-eclampsia complicating childbirth (principal); Z37.0 Single live birth; O77.0 Labor and delivery complicated by meconium in amniotic fluid; O99.324 Drug use complicating childbirth; F15.90 Other stimulant use, unspecified, uncomplicated; F19.90 Other psychoactive substance use, unspecified, uncomplicated; O76 Abnormality in fetal heart rate and rhythm complicating labor and delivery; O99.02 Anemia complicating childbirth; D64.9 Anemia, unspecified; Z20.822 Contact with and (suspected) exposure to COVID-19; Z3A.39 39 weeks gestation of pregnancy
CPT/HCPCS: 36415; 51702; 59409; 76815; 80305-QW; 80307; 81001; 82565; 82570; 83615; 83735; 84156; 84450; 84460; 84520; 84550; 85027; 86592; 86762; 86803; 86850; 86900; 86901; 87081; 87340; 87389; 87491; 87591; A9270-GY; J0360; J2590; J3475; J3490; J7120; U0002

== ENCOUNTER 2021-05-12 21:19 | Emergency (ER) | payer SELFPAY ==
[2021-05-12 22:37] LABS: CORONAVIRUS COVID-19 NAA NEGATIVE (NEGATIVE)
[2021-05-12 22:40] VITALS: BP 103/55; PULSE 122
== END 2021-05-12 22:05 | disposition left against medical advice (07) ==
LOC: DL.ED 21:19
DX: Z53.21 Procedure and treatment not carried out due to patient leaving prior to being seen by health care provider (principal); Z20.822 Contact with and (suspected) exposure to COVID-19
CPT/HCPCS: 0240U

== ENCOUNTER 2021-05-14 17:51 | Emergency (ER) | payer SELFPAY | END 2021-05-14 20:45 | disposition left against medical advice (07) | LOC: DL.ED 17:51 | DX: Z53.21 Procedure and treatment not carried out due to patient leaving prior to being seen by health care provider (principal) ==

== ENCOUNTER 2021-07-21 16:08 | Emergency (ER) | payer MEDICAID ==
[2021-07-21 18:33] VITALS: BP 118/100; PULSE 100
[2021-07-21] MEDS ORDERED: Lidocaine 1% 30 ML SDV INJECT ONE (18:39)
[2021-07-21 19:02] LABS: CHLORIDE,CL 102 mmol/L (98-107); SODIUM,NA 143 mmol/L (136-145)
[2021-07-21] MEDS ORDERED: Sulfamethoxazole/Trimethoprim 800-160 MG Tab PO ONE (19:19)
== END 2021-07-21 19:32 | disposition home or self-care (01) ==
LOC: DL.ED 16:08
DX: L02.811 Cutaneous abscess of head [any part, except face] (principal)
CPT/HCPCS: 10060; 36415; 80053; 83605; 85025; 85651; 86140; 87040; 87070; 87077; 87186; 99283-25; 99284; A9270-GY

== ENCOUNTER 2022-10-08 13:50 | Inpatient (IN) | payer MEDICAID ==
[2022-10-08] MEDS ORDERED: Acetaminophen 325 MG Tab PO PRN ×2 (14:33)
[2022-10-08] MEDS ORDERED: Sodium Chloride 0.9% 10 ML Syringe FLUSH PRN (14:33)
[2022-10-08] MEDS ORDERED: Lidocaine 1% 30 ML SDV INJECT PRN (14:33)
[2022-10-08] MEDS ORDERED: Methylergonovine 0.2 MG/1 ML Amp IM PRN (14:33)
[2022-10-08] MEDS ORDERED: Lactated Ringers 1,000 ML IV ONE (14:33)
[2022-10-08] MEDS ORDERED: Tranexamic Acid 1,000 MG in Sodium Chloride 0.9% 100 ML IV PRN (14:33)
[2022-10-08] MEDS ORDERED: Carboprost Tromethamine 250 MCG/1 ML Amp IM PRN (14:33)
[2022-10-08] MEDS ORDERED: Misoprostol 400 MCG (4 X 100 MCG TAB) RECTAL PRN (14:33)
[2022-10-08] MEDS ORDERED: Misoprostol 25 MCG (1/4 of 100 MCG) Tab VAG PRN (14:33)
[2022-10-08] MEDS ORDERED: Ondansetron 4 MG/2 ML SDV IVPUSH PRN (14:33)
[2022-10-08] MEDS ORDERED: Oxytocin/Normal Saline 30 UNIT/500 ML BAG IV SCH ×2 (14:45)
[2022-10-08] MEDS ORDERED: Penicillin G Potassium 5 MILLUNITS in Sodium Chloride 0.9% 100 ML IV ONE (15:00)
[2022-10-08] MEDS: Penicillin G Potassium 3 MILLUNITS in Sodium Chloride 0.9% 100 ML IV SCH ×2 (19:18→23:09)
[2022-10-08] MEDS: Lactated Ringers 1,000 ML IV SCH ×2 (19:33→22:59)
[2022-10-08] MEDS ORDERED: Bupivacaine 0.25% 10 ML SDV INJECT ONE (21:45)
[2022-10-08] MEDS ORDERED: fentaNYL 100 MCG/2 ML SDV IV ONE (21:45)
[2022-10-08] MEDS ORDERED: Bupivacaine 0.25% 10 ML SDV ONE (21:51)
[2022-10-08] MEDS ORDERED: fentaNYL 100 MCG/2 ML SDV ONE (21:51)
[2022-10-08] MEDS ORDERED: Ropivacaine 100 ML ONE (21:57)
[2022-10-08] MEDS ORDERED: Phenylephrine HCl In 0.9% NaCl 1 MG/10 ML Syringe IVPUSH PRN (22:13)
[2022-10-08] MEDS ORDERED: ePHEDrine 50 MG/ML SDV IVPUSH PRN (22:13)
[2022-10-08] MEDS ORDERED: Ropivacaine 200 MG in Premix Bag 1 BAG EPIDUR SCH (22:15)
[2022-10-09] MEDS ORDERED: Oxytocin 10 Units/1 ML SDV IM PRN (02:02)
[2022-10-09] MEDS ORDERED: Benzocaine/Menthol 20%-0.5% Spray 78 GM Cannister TOP PRN (02:02)
[2022-10-09] MEDS ORDERED: Sodium Chloride 0.9% 10 ML Syringe FLUSH PRN (02:02)
[2022-10-09] MEDS ORDERED: Witch Hazel Medicated Pads 100/Jar TOP PRN (02:02)
[2022-10-09] MEDS ORDERED: Simethicone 80 MG Tab.Chew PO PRN (02:02)
[2022-10-09] MEDS ORDERED: Zolpidem 5 MG Tab PO PRN (02:02)
[2022-10-09] MEDS: Ibuprofen 800 MG Tab PO PRN ×2 (04:40→22:53)
[2022-10-09 06:30] LABS: HEMATOCRIT 33.4 % (37.0-47.0); HEMOGLOBIN 11.2 g/dL (12.0-16.0); MEAN CORPUSCULAR HEMOGLOBIN 31.9 pg (27.0-34.0); MEAN CORPUSCULAR HGB CONC 33.5 g/dL (33.0-35.0); MEAN CORPUSCULAR VOLUME 95.2 fL (80-100); RED BLOOD CELL COUNT 3.51 10^6/uL (4.2-5.4)
[2022-10-09] MEDS: Penicillin G Potassium 3 MILLUNITS in Sodium Chloride 0.9% 100 ML IV SCH (06:49)
[2022-10-09] MEDS: Docusate Sodium 100 MG Cap PO PRN ×2 (07:56→22:53)
[2022-10-09] MEDS: Prenatal Multivitamin with Calcium/Folic Acid/Iron Tab PO SCH ×2 (07:57→14:06)
[2022-10-09] MEDS: Sodium Chloride 0.9% 10 ML Syringe FLUSH SCH ×2 (08:10→21:00)
[2022-10-10 02:14] VITALS: PULSE 78
[2022-10-10] MEDS: Sodium Chloride 0.9% 10 ML Syringe FLUSH SCH ×2 (06:13→10:05)
[2022-10-10 08:11] VITALS: BP 136/78
[2022-10-10] MEDS: Docusate Sodium 100 MG Cap PO PRN (10:04)
[2022-10-10] MEDS: Prenatal Multivitamin with Calcium/Folic Acid/Iron Tab PO SCH (10:04)
[2022-10-10] MEDS: Ibuprofen 800 MG Tab PO PRN (10:04)
== END 2022-10-10 11:10 | disposition home or self-care (01) | DRG 807 ==
LOC: DL.OBCHECK 13:50 → OBSVTOIN 14:33 → DL.OB 14:33
PROVIDERS: ADMIT Family Medicine; ATTEND Family Medicine
PROC: 10E0XZZ Delivery of Products of Conception, External Approach (ICD-10-PCS; principal; 2022-10-08)
PROC: 3E0P7VZ Introduction of Hormone into Female Reproductive, Via Natural or Artificial Opening (ICD-10-PCS; 2022-10-08)
PROC: 10907ZC Drainage of Amniotic Fluid, Therapeutic from Products of Conception, Via Natural or Artificial Opening (ICD-10-PCS; 2022-10-08)
DX: O14.04 Mild to moderate pre-eclampsia, complicating childbirth (principal); O99.824 Streptococcus B carrier state complicating childbirth; O99.02 Anemia complicating childbirth; D64.9 Anemia, unspecified; Z37.0 Single live birth; Z3A.38 38 weeks gestation of pregnancy
CPT/HCPCS: 01967; 36415; 51702; 59020; 59409; 85027; A9270-GY; J2405; J2540; J2590; J2795; J3010; J3490; J7120

== ENCOUNTER 2024-04-22 19:13 | Emergency (ER) | payer MEDICAID ==
[2024-04-22 20:30] VITALS: BP 121/70; PULSE 98
[2024-04-22] MEDS: cefTRIAXone 1 GM, Lidocaine 1% 2.1 ML IM ONE (21:23)
== END 2024-04-22 21:30 | disposition home or self-care (01) ==
LOC: DL.ED 19:13
DX: J02.0 Streptococcal pharyngitis (principal); Z79.899 Other long term (current) drug therapy
CPT/HCPCS: 87428; 87430; 96372; 99282; 99283; J0696; J3490

== ENCOUNTER 2024-05-13 10:32 | Emergency (ER) | payer MEDICAID, OTHER ==
[2024-05-13 11:38] VITALS: BP 143/89; PULSE 71
[2024-05-13] MEDS: Orphenadrine 60 MG/2 ML Inj IM ONE (12:03)
[2024-05-13] MEDS: Ketorolac 30 MG/ML SDV IM ONE (12:03)
[2024-05-13] MEDS: Take Home: Cyclobenzaprine 10 MG Tab, 4 Tab Pack PO ONE (13:23)
[2024-05-13] MEDS: Take Home: predniSONE 20 MG, 4 Tab Pack PO ONE (13:23)
== END 2024-05-13 13:27 | disposition home or self-care (01) ==
LOC: DL.ED 10:32
DX: M62.830 Muscle spasm of back (principal); Z79.899 Other long term (current) drug therapy
CPT/HCPCS: 72080; 73010; 96372; 99283; A9270; J1885; J2360

== ENCOUNTER 2024-05-23 22:18 | Emergency (ER) | payer MEDICAID ==
[2024-05-23 22:42] LABS: BASOPHILS PERCENT AUTO 0.8 % (0.0-1.0); EOSINOPHILS PERCENT AUTO 1.2 % (1.0-3.0); HEMATOCRIT 41.7 % (37.0-47.0); HEMOGLOBIN 14.2 g/dL (12.0-16.0); LYMPHOCYTES PERCENT AUTO 42.7 % (20.5-50.1); MEAN CORPUSCULAR HEMOGLOBIN 31.6 pg (27.0-34.0); MEAN CORPUSCULAR HGB CONC 34.1 g/dL (33.0-35.0); MEAN CORPUSCULAR VOLUME 92.7 fL (80-100); NEUTROPHILS PERCENT AUTO 45.3 % (42.2-75.2); PLATELET COUNT,PLT 226 10^3/uL (150-450)
[2024-05-23 22:52] LABS: HCG QUALITATIVE,SERUM NEGATIVE (NEGATIVE)
[2024-05-23 22:56] LABS: ALANINE AMINOTRANSFERASE,ALT 23 U/L (14-59); ALBUMIN 3.8 g/dL (3.4-5.0); ALKALINE PHOSPHATASE 61 U/L (46-116); ANION GAP 19.4 mEq/L (7-13); ASPARTATE AMNIOTRANSFERASE,AST 17 U/L (15-37); BILIRUBIN TOTAL 0.3 mg/dL (0.2-1.0); BLOOD UREA NITROGEN,BUN 21 mg/dL (7-18); BUN/CREATININE RATIO 18.8 (No establ ref range); CALCIUM 8.4 mg/dL (8.5-10.1); CARBON DIOXIDE,CO2 24 mmol/L (21-32); CHLORIDE,CL 106 mmol/L (98-107); CREATININE 1.12 mg/dL (0.55-1.02); EST CRCL DRUG DOSING (CG) 61.86 mL/min; ESTIMATED GFR 69 mL/min (>=60); GLUCOSE RANDOM 99 mg/dL (70-99); POTASSIUM,K 3.4 mmol/L (3.5-5.1); PROTEIN TOTAL,TP 7.5 g/dL (6.4-8.2); SODIUM,NA 146 mmol/L (136-145)
[2024-05-23] MEDS ORDERED: Sodium Chloride 0.9% 1,000 ML IV ONE (23:13)
[2024-05-23] MEDS: Lidocaine 1% 5 ML VIAL INJECT ONE (23:21)
[2024-05-23] MEDS: Lactated Ringers 1,000 ML IV SCH (23:22)
[2024-05-23] MEDS: Bacitracin Oint 1 GM U/D Packet TOP ONE (23:54)
[2024-05-24 00:46] VITALS: BP 109/65; PULSE 91
== END 2024-05-24 00:42 | disposition home or self-care (01) ==
LOC: DL.ED 22:18
DX: S01.81XA Laceration without foreign body of other part of head, initial encounter (principal); S16.1XXA Strain of muscle, fascia and tendon at neck level, initial encounter; S39.012A Strain of muscle, fascia and tendon of lower back, initial encounter; Z79.899 Other long term (current) drug therapy; Y04.0XXA Assault by unarmed brawl or fight, initial encounter
CPT/HCPCS: 12013; 36415; 70450; 71045; 72100; 72125; 80053; 80307; 84703; 85025; 96360; 99285; A9270; J7120; 99283; J3490

== ENCOUNTER 2024-05-30 02:52 | Emergency (ER) | payer MEDICAID ==
[2024-05-30] MEDS: Lidocaine 1% with EPINEPHrine 1:100,000 20 ML MDV INJECT ONE (04:24)
[2024-05-30 07:09] VITALS: BP 104/69; PULSE 84
[2024-05-30] MEDS: Sodium Chloride 0.9% 1,000 ML IV ONE (07:36)
[2024-05-30 07:44] LABS: BASOPHILS PERCENT AUTO 0.2 % (0.0-1.0); EOSINOPHILS PERCENT AUTO 1.4 % (1.0-3.0); HEMATOCRIT 43.6 % (37.0-47.0); HEMOGLOBIN 14.6 g/dL (12.0-16.0); MEAN CORPUSCULAR HEMOGLOBIN 30.8 pg (27.0-34.0); MEAN CORPUSCULAR HGB CONC 33.5 g/dL (33.0-35.0); MONOCYTES PERCENT AUTO 4.6 % (2-8); NEUTROPHILS PERCENT AUTO 56.8 % (42.2-75.2); PLATELET COUNT,PLT 250 10^3/uL (150-450); RED BLOOD CELL COUNT 4.74 10^6/uL (4.2-5.4); WHITE BLOOD CELL COUNT,WBC 6.3 10^3/uL (5.0-10.0)
[2024-05-30 08:08] LABS: HCG QUALITATIVE,SERUM NEGATIVE (NEGATIVE)
[2024-05-30 08:23] LABS: A/G RATIO 1.1; ALANINE AMINOTRANSFERASE,ALT 23 U/L (14-59); ALBUMIN 3.9 g/dL (3.4-5.0); ALKALINE PHOSPHATASE 57 U/L (46-116); ANION GAP 15.1 mEq/L (7-13); ASPARTATE AMNIOTRANSFERASE,AST 17 U/L (15-37); BILIRUBIN TOTAL 0.2 mg/dL (0.2-1.0); BLOOD UREA NITROGEN,BUN 13 mg/dL (7-18); BUN/CREATININE RATIO 15.9 (No establ ref range); CALCIUM 8.6 mg/dL (8.5-10.1); CARBON DIOXIDE,CO2 26 mmol/L (21-32); CHLORIDE,CL 107 mmol/L (98-107); CREATININE 0.82 mg/dL (0.55-1.02); EST CRCL DRUG DOSING (CG) 84.49 mL/min; ESTIMATED GFR 100 mL/min (>=60); ETHANOL BLOOD MEDICAL 131 mg/dL (0); GLUCOSE RANDOM 95 mg/dL (70-99); MAGNESIUM 1.8 mg/dL (1.8-2.4); POTASSIUM,K 4.1 mmol/L (3.5-5.1); PROTEIN TOTAL,TP 7.6 g/dL (6.4-8.2); SODIUM,NA 144 mmol/L (136-145)
== END 2024-05-30 09:21 | disposition home or self-care (01) ==
LOC: DL.ED 02:52
DX: F10.129 Alcohol abuse with intoxication, unspecified (principal); S01.81XA Laceration without foreign body of other part of head, initial encounter; S09.90XA Unspecified injury of head, initial encounter; Z79.899 Other long term (current) drug therapy; X58.XXXA Exposure to other specified factors, initial encounter
CPT/HCPCS: 12042; 36415; 70450; 72125; 80053; 80307; 83735; 84484; 84703; 85025; 93005; 96360; 99284; J7030; J3490

== ENCOUNTER 2024-11-02 15:17 | Emergency (ER) | payer MEDICAID, OTHER ==
[2024-11-02 15:30] VITALS: BP 140/101; PULSE 95
== END 2024-11-02 15:32 | disposition home or self-care (01) ==
LOC: DL.ED 15:17 → EEVIPCON 15:17 → DL.ED 15:32
DX: Z48.02 Encounter for removal of sutures (principal); Z79.899 Other long term (current) drug therapy
CPT/HCPCS: 99281